=== PATIENT | male | born 1970 | race African-American/Black ===

== ENCOUNTER 2024-07-05 12:59 | Inpatient (IN) | payer OTHER ==
[2024-07-05] MEDS ORDERED: NICOTINE 14 MG/24 HOURS TOPICAL PATCH TD PRN (15:56)
[2024-07-05] MEDS ORDERED: NICOTINE POLACRILEX 4 MG LOZENGE BC PRN (15:56)
[2024-07-05] MEDS ORDERED: hydrOXYzine PAMOATE 25 MG CAPSULE (FP) PO PRN (15:56)
[2024-07-05] MEDS ORDERED: ACETAMINOPHEN 325 MG TABLET (FP) PO PRN (15:56)
[2024-07-05] MEDS ORDERED: MAG HYDROX/AL HYDROX/SIMETH 30 ML UNIT-DOSE CUP PO PRN (15:56)
[2024-07-05] MEDS ORDERED: METHOCARBAMOL 500 MG TABLET PO PRN (15:56)
[2024-07-05] MEDS ORDERED: LOPERAMIDE HCL 2 MG CAPSULE PO PRN (15:56)
[2024-07-05] MEDS ORDERED: POLYETHYLENE GLYCOL (HEALTHYLAX) 3350 17 GM PACKET PO PRN (15:56)
[2024-07-05] MEDS ORDERED: guaiFENesin 600 MG TABLET.ER (FP) PO PRN (15:56)
[2024-07-05] MEDS ORDERED: NALOXONE HCL 0.4 MG/ML VIAL IVPUSH PRN (15:56)
[2024-07-05] MEDS ORDERED: NICOTINE POLACRILEX 4 MG GUM BUC PRN (15:56)
[2024-07-05] MEDS ORDERED: IBUPROFEN 600 MG TABLET (FP) PO PRN (15:56)
[2024-07-05] MEDS ORDERED: BENZOCAINE/MENTHOL (CHLORASEPTIC ) LOZENGE MM PRN (15:56)
[2024-07-05] MEDS ORDERED: NALOXONE (NARCAN) HCL 4 MG/0.1 ML SPRAY NS PRN (15:56)
[2024-07-05] MEDS ORDERED: MAGNESIUM HYDROX 2400MG/30ML ORAL SUSPENSION 30 ML CUP PO PRN (15:56)
[2024-07-05] MEDS ORDERED: BENZONATATE 200 MG CAPSULE PO PRN (15:56)
[2024-07-05] MEDS ORDERED: IBUPROFEN 400 MG TABLET (FP) PO PRN (15:56)
[2024-07-05] MEDS ORDERED: ALBUTEROL SO4 HFA INHALER IH PRN (15:58)
[2024-07-05] MEDS: MELATONIN 5 MG TABLETS PO SCH (21:36)
[2024-07-05] MEDS: GABAPENTIN 300 MG CAPSULE PO SCH (21:36)
[2024-07-05] MEDS: THIAMINE 100 MG TABLET PO SCH (21:36)
[2024-07-06] MEDS: methaDONE HCL 40 MG DISPERSABLE TABLET PO SCH (10:20)
[2024-07-06] MEDS: amLODIPine BESYLATE 10 MG TABLET (FP) PO SCH (10:21)
[2024-07-06] MEDS: PRENATAL VITAMINS W/ FOLIC ACID TABLET (FP) PO SCH (10:21)
[2024-07-06 13:43] LABS: HIV INTERPRETATION NEGATIVE (NEGATIVE)
[2024-07-11] MEDS: METHYL SALICYLATE/MENTHOL 30 GM TUBE TP SCH (10:09)
[2024-07-25] MEDS ORDERED: methaDONE HCL 40 MG DISPERSABLE TABLET PO SCH (10:13)
[2024-07-25] MEDS: methaDONE 40 MG, methaDONE 30 MG PO SCH (10:36)
[2024-07-26 07:07] VITALS: RESP 18; TEMP 97.9
[2024-07-26 09:16] VITALS: BP 118/60; PULSE 67
== END 2024-07-26 10:20 | disposition home or self-care (01) | DRG 772 ==
LOC: YASAS 12:59 → Y5N 13:01
PROVIDERS: ADMIT Psychiatry & Neurology Pain Medicine; ATTEND Psychiatry & Neurology Pain Medicine
PROC: HZ42ZZZ Group Counseling for Substance Abuse Treatment, Cognitive-Behavioral (ICD-10-PCS; principal; 2024-07-05)
DX: F11.20 Opioid dependence, uncomplicated (principal); F14.20 Cocaine dependence, uncomplicated; F17.210 Nicotine dependence, cigarettes, uncomplicated; F19.282 Other psychoactive substance dependence with psychoactive substance-induced sleep disorder; F41.9 Anxiety disorder, unspecified; I10 Essential (primary) hypertension; J45.909 Unspecified asthma, uncomplicated; M54.50 Low back pain, unspecified; G89.29 Other chronic pain; Z59.00 Homelessness unspecified
CPT/HCPCS: 36415; 86803; 87389